=== PATIENT | female | born 1945 | race Caucasian/White ===

== ENCOUNTER 2017-02-12 05:32 | Emergency (ER) | payer MEDICARE, OTHER ==
[2017-02-12] MEDS: ALBUTEROL 0.083% (NEB) 2.5 MG/3 ML AMP NEB ×2 (08:44→09:51)
[2017-02-12] MEDS: IPRATROPIUM (NEB) 0.5 MG/2.5 ML AMP NEB ×2 (08:44→09:51)
== END 2017-02-12 10:52 | disposition home or self-care (01) ==
LOC: FTE 05:32
DX: J06.9 Acute upper respiratory infection, unspecified (principal); I10 Essential (primary) hypertension; E11.9 Type 2 diabetes mellitus without complications; Z79.4 Long term (current) use of insulin; Z79.82 Long term (current) use of aspirin
CPT/HCPCS: 71010; 87400; 94640; 94664; 99284-25

== ENCOUNTER 2017-03-25 20:11 | Emergency (ER) | payer MEDICARE, OTHER ==
[2017-03-25] MEDS: SOD CHLORIDE 0.9% 1,000 ML IV (23:47)
[2017-03-25] MEDS: ONDANSETRON 4 MG INJ IV (23:47)
[2017-03-25] MEDS: MECLIZINE 12.5 MG TAB PO (23:47)
[2017-03-26 00:02] LABS: ADD MAN DIFF? NO
[2017-03-26 00:06] LABS: BASOPHILS % 0.4 % (0.0-2.0); EOSINOPHILS # 0.2 10^3/ul (0.0-0.5); EOSINOPHILS % 1.5 % (0.0-7.0); HEMATOCRIT 39.3 % (37.0-47.0); HEMOGLOBIN 13.6 g/dl (12.0-16.0); LYMPHOCYTES # 1.7 10^3/ul (0.8-2.9); LYMPHOCYTES % 15.3 % (15.0-51.0); MEAN CORPUSCULAR HEMOGLOBIN 29.8 pg (29.0-33.0); MEAN CORPUSCULAR HGB CONC 34.6 g/dl (32.0-37.0); MONOCYTE # 0.6 10^3/ul (0.3-0.9); MONOCYTES % 5.1 % (0.0-11.0); NEUTROPHIL # 8.7 10^3/ul (1.6-7.5); NEUTROPHILS % 77.3 % (39.0-77.0); PLATELET COUNT 297 10^3/UL (140-415); RED BLOOD COUNT 4.57 10^6/ul (4.20-5.40); RED CELL DISTRIBUTION WIDTH 12.5 % (11.5-14.5)
[2017-03-26 00:06] LABS: WHITE BLOOD COUNT 11.3 10^3/ul (4.8-10.8)
[2017-03-26 00:18] LABS: ADD UMIC YES; UR ASCORBIC ACID NEGATIVE (NEGATIVE); UR BILIRUBIN (Dip) NEGATIVE (NEGATIVE); UR BLOOD (Dip) NEGATIVE (NEGATIVE); UR CLARITY CLEAR (CLEAR); UR COLOR YELLOW (YELLOW); UR GLUCOSE (Dip) 1+ mg/dL (NEGATIVE); UR KETONES (Dip) NEGATIVE (NEGATIVE); UR LEUKOCYTE ESTERASE (Dip) NEGATIVE Leu/ul (NEGATIVE); UR NITRITE (Dip) NEGATIVE (NEGATIVE); UR RBC 0 /HPF (0-5); UR SPECIFIC GRAVITY (Dip) 1.023 (1.003-1.030); UR TOTAL PROTEIN (Dip) 2+ mg/dl (NEGATIVE); UR UROBILINOGEN (Dip) 2+ mg/dL (NEGATIVE); UR WBC 2 /HPF (0-5)
[2017-03-26 00:27] LABS: ANION GAP 15 (8-16); BLOOD UREA NITROGEN 28 mg/dl (7-20); CARBON DIOXIDE 21 mmol/L (21-31); CHLORIDE 99 mmol/L (97-110); CREATININE 0.85 mg/dl (0.44-1.00); GLUCOSE 249 mg/dl (70-220); POTASSIUM 5.3 mmol/L (3.5-5.1); SODIUM 130 mmol/L (135-144)
[2017-03-26 00:44] LABS: TROPONIN-I < 0.012 ng/ml (0.00-0.12)
[2017-03-26] MEDS: NA POLYST SULFON 15 GM/60 ML BTL PO (03:58)
== END 2017-03-26 04:19 | disposition home or self-care (01) ==
LOC: E/R 03-26 04:19
DX: E11.65 Type 2 diabetes mellitus with hyperglycemia (principal); E87.1 Hypo-osmolality and hyponatremia; I10 Essential (primary) hypertension; E11.9 Type 2 diabetes mellitus without complications; Z79.4 Long term (current) use of insulin; Z79.82 Long term (current) use of aspirin
CPT/HCPCS: 36415; 80048; 81001; 84484; 85025; 93005; 96374; 99284-25

== ENCOUNTER 2017-05-30 19:45 | Emergency (ER) | payer MEDICARE, OTHER | END 2017-05-30 21:27 | disposition home or self-care (01) | LOC: FTE 19:45 → E/R 21:27 | DX: M25.562 Pain in left knee (principal); I10 Essential (primary) hypertension; E11.9 Type 2 diabetes mellitus without complications; E03.9 Hypothyroidism, unspecified; Z79.4 Long term (current) use of insulin; Z79.82 Long term (current) use of aspirin | CPT/HCPCS: 73562; 99283-25 ==

== ENCOUNTER 2018-04-25 18:56 | Emergency (ER) | payer MEDICARE, OTHER ==
[2018-04-25 21:02] LABS: ADD MAN DIFF? NO; BASOPHILS % 0.4 % (0.0-2.0); EOSINOPHILS # 0.2 10^3/ul (0.0-0.5); EOSINOPHILS % 2.2 % (0.0-7.0); HEMATOCRIT 33.2 % (37.0-47.0); HEMOGLOBIN 10.9 g/dl (12.0-16.0); LYMPHOCYTES # 1.6 10^3/ul (0.8-2.9); LYMPHOCYTES % 20.7 % (15.0-51.0); MEAN CORPUSCULAR HEMOGLOBIN 28.9 pg (29.0-33.0); MEAN CORPUSCULAR HGB CONC 32.8 g/dl (32.0-37.0); MEAN CORPUSCULAR VOLUME 88.1 fl (82.0-101.0); MEAN PLATELET VOLUME 10.4 fl (7.4-10.4); MONOCYTE # 0.5 10^3/ul (0.3-0.9); MONOCYTES % 6.9 % (0.0-11.0); NEUTROPHIL # 5.3 10^3/ul (1.6-7.5); NEUTROPHILS % 69.3 % (39.0-77.0); PLATELET COUNT 259 10^3/UL (140-415); RED BLOOD COUNT 3.77 10^6/ul (4.20-5.40); RED CELL DISTRIBUTION WIDTH 12.4 % (11.5-14.5)
[2018-04-25 21:02] LABS: WHITE BLOOD COUNT 7.7 10^3/ul (4.8-10.8)
[2018-04-25] MEDS: ONDANSETRON (ODT) 4 MG TAB ODT (21:05)
[2018-04-25 21:13] LABS: ALANINE AMINOTRANSFERASE 27 IU/L (13-69); ALBUMIN 3.8 g/dl (3.3-4.9); ALBUMIN/GLOBULIN RATIO 1.26; ALKALINE PHOSPHATASE 134 IU/L (42-121); ANION GAP 10 (5-13); ASPARTATE AMINO TRANSFERASE 24 IU/L (15-46); BILIRUBIN,INDIRECT 0.2 mg/dl (0-1.1); BILIRUBIN,TOTAL 0.2 mg/dl (0.2-1.3); BLOOD UREA NITROGEN 28 mg/dl (7-20); CALCIUM 9.7 mg/dl (8.4-10.2); CARBON DIOXIDE 24 mmol/L (21-31); CHLORIDE 101 mmol/L (97-110); CREATININE 0.92 mg/dl (0.44-1.00); GLUCOSE 256 mg/dl (70-220); LIPASE 67 U/L (23-300); POTASSIUM 5.1 mmol/L (3.5-5.1); SODIUM 135 mmol/L (135-144); TOTAL PROTEIN 6.8 g/dl (6.1-8.1)
[2018-04-25] MEDS: ONDANSETRON 4 MG INJ IV (21:33)
[2018-04-25] MEDS: morphine 4 MG/ML VIAL IV (21:33)
== END 2018-04-26 00:10 | disposition home or self-care (01) ==
LOC: E/R 04-26 00:10
DX: K59.00 Constipation, unspecified (principal); E11.65 Type 2 diabetes mellitus with hyperglycemia; I10 Essential (primary) hypertension; Z79.4 Long term (current) use of insulin; Z79.82 Long term (current) use of aspirin
CPT/HCPCS: 36415; 71045; 74176; 80053; 83690; 85025; 96374; 99285-25

== ENCOUNTER 2018-06-13 20:08 | Inpatient (IN) | payer MEDICARE, OTHER ==
[2018-06-13 22:31] LABS: ADD MAN DIFF? NO
[2018-06-13 22:34] LABS: BASOPHILS % 0.3 % (0.0-2.0); EOSINOPHILS # 0.2 10^3/ul (0.0-0.5); EOSINOPHILS % 2.3 % (0.0-7.0); HEMOGLOBIN 11.5 g/dl (12.0-16.0); LYMPHOCYTES # 1.4 10^3/ul (0.8-2.9); LYMPHOCYTES % 13.9 % (15.0-51.0); MEAN CORPUSCULAR HGB CONC 33.8 g/dl (32.0-37.0); MEAN CORPUSCULAR VOLUME 85.9 fl (82.0-101.0); MEAN PLATELET VOLUME 9.8 fl (7.4-10.4); MONOCYTE # 0.6 10^3/ul (0.3-0.9); PLATELET COUNT 254 10^3/UL (140-415); RED BLOOD COUNT 3.96 10^6/ul (4.20-5.40); RED CELL DISTRIBUTION WIDTH 12.5 % (11.5-14.5)
[2018-06-13 22:34] LABS: WHITE BLOOD COUNT 10.4 10^3/ul (4.8-10.8)
[2018-06-13 22:53] LABS: ANION GAP 9 (5-13); BLOOD UREA NITROGEN 25 mg/dl (7-20); CALCIUM 9.6 mg/dl (8.4-10.2); CARBON DIOXIDE 23 mmol/L (21-31); CHLORIDE 96 mmol/L (97-110); GLUCOSE 279 mg/dl (70-220); POTASSIUM 4.9 mmol/L (3.5-5.1); SODIUM 128 mmol/L (135-144)
[2018-06-13 23:04] LABS: B-TYPE NATRIURETIC PEPTIDE 497 PG/ML (0-450); TROPONIN-I < 0.012 ng/ml (0.000-0.120)
[2018-06-13] MEDS: ACETAMINOPHEN 325 MG TAB PO (23:54)
[2018-06-13] MEDS: NITROGLYCERIN (SL) 0.4 MG TAB SL (23:54)
[2018-06-13] MEDS: FUROSEMIDE 20 MG INJ IV (23:54)
[2018-06-14] MEDS: SOD CHLORIDE 0.9% 500 ML IV (00:20)
[2018-06-14] MEDS ORDERED: BISACODYL (EC) 5 MG TAB PO (01:00)
[2018-06-14] MEDS ORDERED: ONDANSETRON 4 MG TAB PO (01:00)
[2018-06-14] MEDS ORDERED: NACL 0.9% 3 ML SYG IV (01:00)
[2018-06-14] MEDS ORDERED: NITROGLYCERIN (SL) 0.4 MG TAB SL (01:00)
[2018-06-14] MEDS ORDERED: DOCUSATE SODIUM 100 MG CAP PO (01:00)
[2018-06-14] MEDS: HEPARIN 5,000 UNIT/1 ML VIAL SC ×4 (01:31→21:48)
[2018-06-14] MEDS: ASPIRIN 81 MG TAB PO (01:32)
[2018-06-14] MEDS: LISINOPRIL 20 MG TAB PO (04:12)
[2018-06-14] MEDS: AMLODIPINE 5 MG TAB PO (04:12)
[2018-06-14 05:53] LABS: ADD MAN DIFF? NO
[2018-06-14 05:58] LABS: BASOPHILS % 0.4 % (0.0-2.0); EOSINOPHILS # 0.2 10^3/ul (0.0-0.5); EOSINOPHILS % 2.5 % (0.0-7.0); HEMATOCRIT 35.8 % (37.0-47.0); HEMOGLOBIN 12.1 g/dl (12.0-16.0); LYMPHOCYTES # 1.4 10^3/ul (0.8-2.9); LYMPHOCYTES % 15.5 % (15.0-51.0); MEAN CORPUSCULAR HEMOGLOBIN 28.9 pg (29.0-33.0); MEAN CORPUSCULAR HGB CONC 33.8 g/dl (32.0-37.0); MEAN CORPUSCULAR VOLUME 85.4 fl (82.0-101.0); MEAN PLATELET VOLUME 9.8 fl (7.4-10.4); MONOCYTE # 0.7 10^3/ul (0.3-0.9); MONOCYTES % 7.3 % (0.0-11.0); NEUTROPHIL # 6.7 10^3/ul (1.6-7.5); NEUTROPHILS % 73.5 % (39.0-77.0); PLATELET COUNT 276 10^3/UL (140-415); RED BLOOD COUNT 4.19 10^6/ul (4.20-5.40); RED CELL DISTRIBUTION WIDTH 12.4 % (11.5-14.5)
[2018-06-14 05:58] LABS: WHITE BLOOD COUNT 9.2 10^3/ul (4.8-10.8)
[2018-06-14 06:35] LABS: ALANINE AMINOTRANSFERASE 21 IU/L (13-69); ALBUMIN 3.8 g/dl (3.3-4.9); ALBUMIN/GLOBULIN RATIO 1.35; ALKALINE PHOSPHATASE 123 IU/L (42-121); ANION GAP 9 (5-13); ASPARTATE AMINO TRANSFERASE 24 IU/L (15-46); BILIRUBIN,INDIRECT 0.5 mg/dl (0-1.1); BILIRUBIN,TOTAL 0.5 mg/dl (0.2-1.3); BLOOD UREA NITROGEN 24 mg/dl (7-20); CALCIUM 9.4 mg/dl (8.4-10.2); CARBON DIOXIDE 25 mmol/L (21-31); CHLORIDE 99 mmol/L (97-110); CHOL/HDL RATIO 2.2 RATIO; CHOLESTEROL 194 mg/dl (100-200); CREATININE 0.65 mg/dl (0.44-1.00); GLUCOSE 163 mg/dl (70-220); HDL CHOLESTEROL 85 mg/dl (33-92); LDL CHOLESTEROL,CALCULATED 77 mg/dl; MAGNESIUM 1.7 mg/dl (1.7-2.5); POTASSIUM 4.5 mmol/L (3.5-5.1); SODIUM 133 mmol/L (135-144); TOTAL PROTEIN 6.6 g/dl (6.1-8.1); TRIGLYCERIDES 158 mg/dl (0-149)
[2018-06-14 07:42] LABS: HEMOGLOBIN A1C 8.8 % (0-5.9)
[2018-06-14] MEDS: hydrALAzine 20 MG INJ IV (08:32)
[2018-06-14] MEDS: FERROUS SULFATE (EC) 325 MG TAB PO (08:39)
[2018-06-14] MEDS: ISOSORBIDE MONONITRATE(SR)60 MG TAB PO (08:40)
[2018-06-14] MEDS: LEVOTHYROXINE 88 MCG TAB PO (08:40)
[2018-06-14] MEDS: predniSONE 1 MG TAB PO (08:41)
[2018-06-14] MEDS: TACROLIMUS 1 MG CAP PO (08:42)
[2018-06-14] MEDS: PANTOPRAZOLE (EC) 40 MG TAB PO (08:43)
[2018-06-14] MEDS: ASPIRIN (EC) 81 MG TAB PO (08:43)
[2018-06-14] MEDS: MYCOPHENOLATE 250 MG CAP PO ×2 (08:44→21:39)
[2018-06-14] MEDS: METOPROLOL (XL) 25 MG TAB PO (09:38)
[2018-06-14] MEDS: FUROSEMIDE 20 MG TAB PO (09:39)
[2018-06-14 10:56] LABS: ADD UMIC YES; UR ASCORBIC ACID NEGATIVE (NEGATIVE); UR BILIRUBIN (Dip) NEGATIVE (NEGATIVE); UR BLOOD (Dip) NEGATIVE (NEGATIVE); UR CLARITY CLEAR (CLEAR); UR COLOR YELLOW (YELLOW); UR GLUCOSE (Dip) 2+ mg/dL (NEGATIVE); UR KETONES (Dip) NEGATIVE (NEGATIVE); UR LEUKOCYTE ESTERASE (Dip) NEGATIVE Leu/ul (NEGATIVE); UR NITRITE (Dip) NEGATIVE (NEGATIVE); UR RBC 0 /HPF (0-5); UR SPECIFIC GRAVITY (Dip) 1.014 (1.003-1.030); UR TOTAL PROTEIN (Dip) 2+ mg/dl (NEGATIVE); UR UROBILINOGEN (Dip) NEGATIVE (NEGATIVE); UR WBC 1 /HPF (0-5)
[2018-06-14 11:05] LABS: SODIUM,URINE RANDOM 23 mmol/L (30-90)
[2018-06-14 11:05] LABS: CREATININE,URINE RANDOM 66.74 mg/dl (20-320)
[2018-06-14] MEDS ORDERED: GLUCOSE GEL 15 GRAM TUBE BUCCAL (12:00)
[2018-06-14] MEDS ORDERED: GLUCAGON 1 MG INJ IM (12:00)
[2018-06-14] MEDS ORDERED: GLUCOSE GEL 15 GRAM TUBE PO ×2 (12:00)
[2018-06-14] MEDS ORDERED: DEXTROSE 50% 50 ML SYRINGE IV ×2 (12:00)
[2018-06-14] MEDS: INSULIN REGULAR, HUMAN 100 UNIT/1 ML 3ML VIAL SC (14:14)
[2018-06-14] MEDS: AMLODIPINE 10 MG TAB PO (14:38)
[2018-06-14] MEDS: ACETAMINOPHEN 325 MG TAB PO (16:59)
[2018-06-14] MEDS ORDERED: ALBUTEROL 0.083% (NEB) 2.5 MG/3 ML AMP HHN (17:00)
[2018-06-14] MEDS: INSULIN ASPART [NOVOLOG] 3 ML PEN SC ×2 (18:04→21:00)
[2018-06-14] MEDS: AZITHROMYCIN 500MG/NS (PMX) 250 ML IVPB (18:27)
[2018-06-14] MEDS ORDERED: INSULIN GLARGINE [LANtus] 3 ML PEN SC (21:00)
[2018-06-14] MEDS: ATORVASTATIN 10 MG TAB PO (21:39)
[2018-06-14] MEDS: INSULIN GLARGINE [LANTus] (100 UNITS/ML) SYG SC (21:47)
[2018-06-15] MEDS: LEVOTHYROXINE 88 MCG TAB PO (06:07)
[2018-06-15] MEDS: PANTOPRAZOLE (EC) 40 MG TAB PO (06:07)
[2018-06-15] MEDS: HEPARIN 5,000 UNIT/1 ML VIAL SC (06:20)
[2018-06-15 07:07] LABS: ADD MAN DIFF? NO
[2018-06-15 07:22] LABS: WHITE BLOOD COUNT 8.3 10^3/ul (4.8-10.8)
[2018-06-15 07:22] LABS: BASOPHILS % 0.5 % (0.0-2.0); EOSINOPHILS # 0.2 10^3/ul (0.0-0.5); EOSINOPHILS % 2.7 % (0.0-7.0); HEMATOCRIT 35.4 % (37.0-47.0); LYMPHOCYTES # 1.6 10^3/ul (0.8-2.9); LYMPHOCYTES % 18.8 % (15.0-51.0); MEAN CORPUSCULAR HEMOGLOBIN 28.8 pg (29.0-33.0); MEAN CORPUSCULAR HGB CONC 33.9 g/dl (32.0-37.0); MEAN CORPUSCULAR VOLUME 84.9 fl (82.0-101.0); MEAN PLATELET VOLUME 10.2 fl (7.4-10.4); MONOCYTE # 0.6 10^3/ul (0.3-0.9); MONOCYTES % 7.3 % (0.0-11.0); NEUTROPHIL # 5.8 10^3/ul (1.6-7.5); NEUTROPHILS % 70.1 % (39.0-77.0); PLATELET COUNT 279 10^3/UL (140-415); RED BLOOD COUNT 4.17 10^6/ul (4.20-5.40); RED CELL DISTRIBUTION WIDTH 12.7 % (11.5-14.5)
[2018-06-15 07:35] LABS: ALBUMIN 3.8 g/dl (3.3-4.9); ANION GAP 9 (5-13); BLOOD UREA NITROGEN 26 mg/dl (7-20); CALCIUM 9.4 mg/dl (8.4-10.2); CARBON DIOXIDE 24 mmol/L (21-31); CHLORIDE 100 mmol/L (97-110); CREATININE 0.67 mg/dl (0.44-1.00); GLUCOSE 166 mg/dl (70-220); MAGNESIUM 1.8 mg/dl (1.7-2.5); PHOSPHORUS 3.2 mg/dl (2.5-4.9); POTASSIUM 4.5 mmol/L (3.5-5.1); SODIUM 133 mmol/L (135-144)
[2018-06-15] MEDS: MYCOPHENOLATE 250 MG CAP PO (08:13)
[2018-06-15] MEDS: FERROUS SULFATE (EC) 325 MG TAB PO (08:14)
[2018-06-15] MEDS: TACROLIMUS 1 MG CAP PO (08:14)
[2018-06-15] MEDS: predniSONE 1 MG TAB PO (08:14)
[2018-06-15] MEDS: ASPIRIN (EC) 81 MG TAB PO (08:15)
[2018-06-15] MEDS: AMLODIPINE 10 MG TAB PO (08:15)
[2018-06-15] MEDS: LISINOPRIL 20 MG TAB PO (08:15)
[2018-06-15] MEDS: FUROSEMIDE 20 MG TAB PO (08:15)
[2018-06-15] MEDS: ISOSORBIDE MONONITRATE(SR)60 MG TAB PO (08:16)
[2018-06-15] MEDS: METOPROLOL (XL) 25 MG TAB PO (08:17)
[2018-06-15] MEDS: INSULIN ASPART [NOVOLOG] 3 ML PEN SC ×2 (08:27→12:22)
[2018-06-15] MEDS ORDERED: AMLODIPINE 5 MG TAB PO (09:00)
[2018-06-15 16:12] LABS: CREATININE, RANDOM URINE 63 mg/dL (20-275); MICROALBUMIN 60.8 mg/dL; MICROALBUMIN/CREATININE RATIO 965 (<30)
== END 2018-06-15 14:05 | disposition home or self-care (01) | DRG 304 ==
LOC: TEL 06-14 15:57 → E/R 20:08 → TEL 06-14 00:54
DX: I16.0 Hypertensive urgency (principal); N18.6 End stage renal disease; E87.1 Hypo-osmolality and hyponatremia; Z94.0 Kidney transplant status; E87.0 Hyperosmolality and hypernatremia; I13.2 Hypertensive heart and chronic kidney disease with heart failure and with stage 5 chronic kidney disease, or end stage renal disease; E11.22 Type 2 diabetes mellitus with diabetic chronic kidney disease; I50.9 Heart failure, unspecified; J20.9 Acute bronchitis, unspecified; E78.5 Hyperlipidemia, unspecified; E03.9 Hypothyroidism, unspecified; D64.9 Anemia, unspecified; E66.9 Obesity, unspecified; Z68.36 Body mass index [BMI] 36.0-36.9, adult; Z71.3 Dietary counseling and surveillance; Z79.4 Long term (current) use of insulin
CPT/HCPCS: 36415; 71045; 71250; 80048; 80053; 80061; 80069; 81001; 81003; 82043; 82962; 83036; 83735; 83880; 84155; 84300; 84443; 84484; 85025; 93005; 93306; 96374; 99285-25

== ENCOUNTER 2018-07-31 08:45 | Emergency (ER) | payer MEDICARE, OTHER ==
[2018-07-31 10:24] LABS: ADD MAN DIFF? NO
[2018-07-31] MEDS: AZITHROMYCIN 500MG/NS (PMX) 250 ML IV (10:25)
[2018-07-31] MEDS: SOD CHLORIDE 0.9% 500 ML IV (10:26)
[2018-07-31 10:40] LABS: BASOPHIL # 0.1 10^3/ul (0.0-0.1); BASOPHILS % 0.8 % (0.0-2.0); EOSINOPHILS # 0.3 10^3/ul (0.0-0.5); EOSINOPHILS % 2.9 % (0.0-7.0); HEMATOCRIT 33.7 % (37.0-47.0); LYMPHOCYTES # 1.4 10^3/ul (0.8-2.9); LYMPHOCYTES % 16.2 % (15.0-51.0); MEAN CORPUSCULAR HEMOGLOBIN 29.1 pg (29.0-33.0); MEAN CORPUSCULAR HGB CONC 32.6 g/dl (32.0-37.0); MEAN CORPUSCULAR VOLUME 89.2 fl (82.0-101.0); MEAN PLATELET VOLUME 10.1 fl (7.4-10.4); MONOCYTE # 0.8 10^3/ul (0.3-0.9); MONOCYTES % 9.1 % (0.0-11.0); NEUTROPHIL # 6.1 10^3/ul (1.6-7.5); NEUTROPHILS % 70.3 % (39.0-77.0); PLATELET COUNT 241 10^3/UL (140-415); RED BLOOD COUNT 3.78 10^6/ul (4.20-5.40); RED CELL DISTRIBUTION WIDTH 13.2 % (11.5-14.5)
[2018-07-31 10:40] LABS: WHITE BLOOD COUNT 8.6 10^3/ul (4.8-10.8)
[2018-07-31 10:47] LABS: ALANINE AMINOTRANSFERASE 16 IU/L (13-69); ALBUMIN 3.6 g/dl (3.3-4.9); ALBUMIN/GLOBULIN RATIO 1.33; ALKALINE PHOSPHATASE 80 IU/L (42-121); ANION GAP 8 (5-13); ASPARTATE AMINO TRANSFERASE 27 IU/L (15-46); BILIRUBIN,INDIRECT 0.4 mg/dl (0-1.1); BILIRUBIN,TOTAL 0.4 mg/dl (0.2-1.3); BLOOD UREA NITROGEN 23 mg/dl (7-20); CALCIUM 8.9 mg/dl (8.4-10.2); CARBON DIOXIDE 21 mmol/L (21-31); CHLORIDE 100 mmol/L (97-110); CREATINE KINASE 48 IU/L (23-200); GLUCOSE 244 mg/dl (70-220); POTASSIUM 4.4 mmol/L (3.5-5.1); SODIUM 129 mmol/L (135-144); TOTAL PROTEIN 6.3 g/dl (6.1-8.1)
[2018-07-31] MEDS: ALBUTEROL 0.5% (NEB) 2.5 MG/0.5 ML AMP INH (10:52)
[2018-07-31] MEDS: IPRATROPIUM (NEB) 0.5 MG/2.5 ML AMP INH (10:52)
[2018-07-31 10:54] LABS: INR 0.85; PARTIAL THROMBOPLASTIN TIME 27.1 Sec (23.0-35.0); PROTIME 11.7 Sec (11.9-14.9); PT RATIO 0.9
[2018-07-31 10:59] LABS: B-TYPE NATRIURETIC PEPTIDE 635 PG/ML (0-450); CK INDEX 1.9; CK-MB 0.89 ng/ml (0.0-2.4); TROPONIN-I < 0.012 ng/ml (0.000-0.120)
[2018-07-31] MEDS: ALBUTEROL 0.5% (NEB) 2.5 MG/0.5 ML AMP NEB (12:15)
[2018-07-31] MEDS: IPRATROPIUM (NEB) 0.5 MG/2.5 ML AMP NEB (12:17)
== END 2018-07-31 13:55 | disposition home or self-care (01) ==
LOC: E/R 13:55
DX: J40 Bronchitis, not specified as acute or chronic (principal); E87.1 Hypo-osmolality and hyponatremia; I10 Essential (primary) hypertension; E11.65 Type 2 diabetes mellitus with hyperglycemia; Z79.4 Long term (current) use of insulin; Z79.82 Long term (current) use of aspirin
CPT/HCPCS: 71045; 80053; 82550; 82553; 83880; 84484; 85025; 85610; 85730; 87040-91; 93005; 94644; 94645; 96374; 99285-25

== ENCOUNTER 2018-08-21 17:20 | Emergency (ER) | payer MEDICARE, OTHER ==
[2018-08-21] MEDS: HYDROCODONE/APAP (5/325) TAB PO (18:03)
== END 2018-08-21 19:38 | disposition home or self-care (01) ==
LOC: FTE 17:20
DX: S80.12XA Contusion of left lower leg, initial encounter (principal); E11.9 Type 2 diabetes mellitus without complications; I10 Essential (primary) hypertension; W01.0XXA Fall on same level from slipping, tripping and stumbling without subsequent striking against object, initial encounter; Y92.002 Bathroom of unspecified non-institutional (private) residence as the place of occurrence of the external cause; Z79.4 Long term (current) use of insulin; Z79.82 Long term (current) use of aspirin
CPT/HCPCS: 73590; 99283-25

== ENCOUNTER 2018-09-16 15:37 | Inpatient (IN) | payer MEDICARE, OTHER ==
[2018-09-16 16:24] LABS: ADD MAN DIFF? NO
[2018-09-16] MEDS: SOD CHLORIDE 0.9% 1,000 ML IV (16:25)
[2018-09-16 16:26] LABS: WHITE BLOOD COUNT 7.8 10^3/ul (4.8-10.8)
[2018-09-16 16:26] LABS: BASOPHILS % 0.4 % (0.0-2.0); EOSINOPHILS # 0.1 10^3/ul (0.0-0.5); EOSINOPHILS % 1.4 % (0.0-7.0); HEMATOCRIT 30.7 % (37.0-47.0); HEMOGLOBIN 10.7 g/dl (12.0-16.0); LYMPHOCYTES # 0.9 10^3/ul (0.8-2.9); LYMPHOCYTES % 11.4 % (15.0-51.0); MEAN CORPUSCULAR HEMOGLOBIN 29.5 pg (29.0-33.0); MEAN CORPUSCULAR HGB CONC 34.9 g/dl (32.0-37.0); MEAN CORPUSCULAR VOLUME 84.6 fl (82.0-101.0); MEAN PLATELET VOLUME 10.3 fl (7.4-10.4); MONOCYTE # 0.6 10^3/ul (0.3-0.9); MONOCYTES % 7.9 % (0.0-11.0); NEUTROPHIL # 6.1 10^3/ul (1.6-7.5); NEUTROPHILS % 78.5 % (39.0-77.0); PLATELET COUNT 206 10^3/UL (140-415); RED BLOOD COUNT 3.63 10^6/ul (4.20-5.40); RED CELL DISTRIBUTION WIDTH 12.5 % (11.5-14.5)
[2018-09-16 16:44] LABS: ALANINE AMINOTRANSFERASE 27 IU/L (13-69); ALBUMIN 3.5 g/dl (3.3-4.9); ALKALINE PHOSPHATASE 107 IU/L (42-121); ANION GAP 9 (5-13); ASPARTATE AMINO TRANSFERASE 21 IU/L (15-46); BILIRUBIN,INDIRECT 0.7 mg/dl (0-1.1); BILIRUBIN,TOTAL 0.7 mg/dl (0.2-1.3); BLOOD UREA NITROGEN 17 mg/dl (7-20); CALCIUM 8.7 mg/dl (8.4-10.2); CARBON DIOXIDE 22 mmol/L (21-31); CHLORIDE 89 mmol/L (97-110); CREATININE 0.79 mg/dl (0.44-1.00); GLUCOSE 342 mg/dl (70-220); POTASSIUM 4.7 mmol/L (3.5-5.1); SODIUM 120 mmol/L (135-144)
[2018-09-16 16:55] LABS: TROPONIN-I < 0.012 ng/ml (0.000-0.120)
[2018-09-16 17:03] LABS: ADD UMIC YES; UR ASCORBIC ACID NEGATIVE (NEGATIVE); UR BILIRUBIN (Dip) NEGATIVE (NEGATIVE); UR BLOOD (Dip) NEGATIVE (NEGATIVE); UR CLARITY CLEAR (CLEAR); UR COLOR YELLOW (YELLOW); UR GLUCOSE (Dip) 3+ mg/dL (NEGATIVE); UR KETONES (Dip) NEGATIVE (NEGATIVE); UR LEUKOCYTE ESTERASE (Dip) NEGATIVE Leu/ul (NEGATIVE); UR NITRITE (Dip) NEGATIVE (NEGATIVE); UR RBC 0 /HPF (0-5); UR SPECIFIC GRAVITY (Dip) 1.007 (1.003-1.030); UR TOTAL PROTEIN (Dip) 2+ mg/dl (NEGATIVE); UR UROBILINOGEN (Dip) NEGATIVE (NEGATIVE); UR WBC 1 /HPF (0-5)
[2018-09-16] MEDS: hydrALAzine 20 MG INJ IV (17:50)
[2018-09-16] MEDS ORDERED: ACETAMINOPHEN 325 MG TAB PO (18:30)
[2018-09-16] MEDS ORDERED: ONDANSETRON 4 MG INJ IV (18:30)
[2018-09-16] MEDS: ONDANSETRON 4 MG INJ IV (18:46)
[2018-09-16] MEDS ORDERED: NITROGLYCERIN (SL) 0.4 MG TAB SL (19:00)
[2018-09-16] MEDS ORDERED: NACL 0.9% 3 ML SYG IV (19:00)
[2018-09-16] MEDS ORDERED: morphine 2 MG INJ IV (19:00)
[2018-09-16] MEDS ORDERED: hydrALAzine 20 MG INJ IV (19:00)
[2018-09-16] MEDS ORDERED: ALBUTEROL HFA 8 GM INHALER INH (19:00)
[2018-09-16] MEDS ORDERED: ALBUTEROL/IPRATROPIUM (NEB) 3 ML AMP HHN (19:00)
[2018-09-16 19:15] LABS: FREE T4 (FREE THYROXINE) 0.77 ng/dl (0.78-2.44)
[2018-09-16] MEDS ORDERED: MYCOPHENOLATE 250 MG CAP PO (21:00)
[2018-09-16] MEDS ORDERED: NON-FORMULARY/PATIENT OWN MED (Pravastatin Sodium* 40 MG) PO (21:00)
[2018-09-16] MEDS: INSULIN ASPART [NOVOLOG] 3 ML PEN SC (21:00)
[2018-09-16] MEDS ORDERED: INSULIN GLARGINE [LANtus] 3 ML PEN SC (21:00)
[2018-09-17] MEDS: ATORVASTATIN 10 MG TAB PO ×2 (00:37→20:52)
[2018-09-17] MEDS: MYCOPHENOLATE MOFETIL 500 MG TABLET PO ×3 (00:37→20:52)
[2018-09-17] MEDS: SOD CHLORIDE 0.9% 1,000 ML IV (00:39)
[2018-09-17] MEDS: HEPARIN 5,000 UNIT/1 ML VIAL SC ×3 (01:09→20:58)
[2018-09-17] MEDS: ACCU-CHEK XX (02:00)
[2018-09-17] MEDS: INSULIN GLARGINE [LANTus] (100 UNITS/ML) SYG SC ×2 (03:12→20:58)
[2018-09-17] MEDS: INSULIN ASPART [NOVOLOG] 3 ML PEN SC ×6 (03:13→20:57)
[2018-09-17] MEDS: ACETAMINOPHEN 325 MG TAB PO ×2 (03:37→21:19)
[2018-09-17] MEDS: LORAZEPAM 2 MG INJ IV ×2 (04:22→22:28)
[2018-09-17] MEDS: PANTOPRAZOLE (EC) 40 MG TAB PO (06:29)
[2018-09-17] MEDS: LEVOTHYROXINE 88 MCG TAB PO (06:29)
[2018-09-17 06:43] LABS: ADD MAN DIFF? NO
[2018-09-17 06:57] LABS: WHITE BLOOD COUNT 6.8 10^3/ul (4.8-10.8)
[2018-09-17 06:57] LABS: BASOPHILS % 0.4 % (0.0-2.0); EOSINOPHILS # 0.1 10^3/ul (0.0-0.5); EOSINOPHILS % 1.3 % (0.0-7.0); HEMATOCRIT 31.5 % (37.0-47.0); HEMOGLOBIN 10.7 g/dl (12.0-16.0); LYMPHOCYTES % 15.3 % (15.0-51.0); MEAN CORPUSCULAR HEMOGLOBIN 29.2 pg (29.0-33.0); MEAN CORPUSCULAR VOLUME 86.1 fl (82.0-101.0); MEAN PLATELET VOLUME 10.5 fl (7.4-10.4); MONOCYTE # 0.7 10^3/ul (0.3-0.9); MONOCYTES % 9.6 % (0.0-11.0); NEUTROPHILS % 72.8 % (39.0-77.0); PLATELET COUNT 233 10^3/UL (140-415); RED BLOOD COUNT 3.66 10^6/ul (4.20-5.40); RED CELL DISTRIBUTION WIDTH 12.6 % (11.5-14.5)
[2018-09-17 07:11] LABS: CHOLESTEROL 145 mg/dl (100-200)
[2018-09-17 07:11] LABS: CHOL/HDL RATIO 2.8 RATIO; HDL CHOLESTEROL 51 mg/dl (33-92); LDL CHOLESTEROL,CALCULATED 42 mg/dl; TRIGLYCERIDES 259 mg/dl (0-149)
[2018-09-17 07:13] LABS: ANION GAP 7 (5-13); BLOOD UREA NITROGEN 12 mg/dl (7-20); CALCIUM 8.6 mg/dl (8.4-10.2); CARBON DIOXIDE 23 mmol/L (21-31); CHLORIDE 99 mmol/L (97-110); CREATININE 0.69 mg/dl (0.44-1.00); GLUCOSE 192 mg/dl (70-220); MAGNESIUM 1.9 mg/dl (1.7-2.5); PHOSPHORUS 2.2 mg/dl (2.5-4.9); POTASSIUM 4.4 mmol/L (3.5-5.1); SODIUM 129 mmol/L (135-144)
[2018-09-17 07:28] LABS: HEMOGLOBIN A1C 8.5 % (0-5.9)
[2018-09-17] MEDS: FERROUS SULFATE (EC) 325 MG TAB PO (08:09)
[2018-09-17] MEDS: INSULIN REGULAR, HUMAN 100 UNIT/1 ML 3ML VIAL SC ×3 (08:10→17:00)
[2018-09-17] MEDS: ISOSORBIDE MONONITRATE(SR)60 MG TAB PO (08:12)
[2018-09-17] MEDS: LISINOPRIL 20 MG TAB PO (08:12)
[2018-09-17] MEDS: ASPIRIN (EC) 81 MG TAB PO (08:13)
[2018-09-17] MEDS: predniSONE 1 MG TAB PO (08:13)
[2018-09-17] MEDS: METOPROLOL (XL) 25 MG TAB PO (08:14)
[2018-09-17] MEDS: FUROSEMIDE 20 MG TAB PO (08:14)
[2018-09-17] MEDS: AMLODIPINE 10 MG TAB PO (08:15)
[2018-09-17] MEDS ORDERED: NON-FORMULARY/PATIENT OWN MED (Esomeprazole Mag Trihydrate (Nexium) 40 MG) PO (09:00)
[2018-09-17] MEDS: TACROLIMUS 1 MG CAP PO (11:20)
[2018-09-17 11:26] LABS: ANION GAP 8 (5-13); BLOOD UREA NITROGEN 13 mg/dl (7-20); CALCIUM 8.6 mg/dl (8.4-10.2); CARBON DIOXIDE 21 mmol/L (21-31); CHLORIDE 97 mmol/L (97-110); CREATININE 0.79 mg/dl (0.44-1.00); GLUCOSE 222 mg/dl (70-220); SODIUM 126 mmol/L (135-144)
[2018-09-17 11:35] LABS: POTASSIUM 4.1 mmol/L (3.5-5.1)
[2018-09-17] MEDS ORDERED: hydrALAzine 20 MG INJ IV (13:30)
[2018-09-17 18:52] LABS: ADD UMIC YES; UR ASCORBIC ACID NEGATIVE (NEGATIVE); UR BILIRUBIN (Dip) NEGATIVE (NEGATIVE); UR BLOOD (Dip) NEGATIVE (NEGATIVE); UR CLARITY CLEAR (CLEAR); UR COLOR YELLOW (YELLOW); UR GLUCOSE (Dip) NEGATIVE (NEGATIVE); UR KETONES (Dip) NEGATIVE (NEGATIVE); UR LEUKOCYTE ESTERASE (Dip) NEGATIVE Leu/ul (NEGATIVE); UR NITRITE (Dip) NEGATIVE (NEGATIVE); UR RBC 0 /HPF (0-5); UR SPECIFIC GRAVITY (Dip) 1.012 (1.003-1.030); UR TOTAL PROTEIN (Dip) 2+ mg/dl (NEGATIVE); UR UROBILINOGEN (Dip) NEGATIVE (NEGATIVE); UR WBC 1 /HPF (0-5)
[2018-09-17 18:59] LABS: CREATININE,URINE RANDOM 91.22 mg/dl (20-320)
[2018-09-17 18:59] LABS: SODIUM,URINE RANDOM 38 mmol/L (30-90)
[2018-09-18] MEDS: INSULIN ASPART [NOVOLOG] 3 ML PEN SC ×5 (01:11→21:10)
[2018-09-18] MEDS: ACCU-CHEK XX (01:12)
[2018-09-18 06:28] LABS: ADD MAN DIFF? NO
[2018-09-18 06:32] LABS: BASOPHILS % 0.5 % (0.0-2.0); EOSINOPHILS # 0.1 10^3/ul (0.0-0.5); EOSINOPHILS % 1.6 % (0.0-7.0); HEMATOCRIT 29.2 % (37.0-47.0); LYMPHOCYTES % 15.4 % (15.0-51.0); MEAN CORPUSCULAR HEMOGLOBIN 29.2 pg (29.0-33.0); MEAN CORPUSCULAR HGB CONC 34.2 g/dl (32.0-37.0); MEAN CORPUSCULAR VOLUME 85.4 fl (82.0-101.0); MEAN PLATELET VOLUME 10.1 fl (7.4-10.4); MONOCYTE # 0.6 10^3/ul (0.3-0.9); MONOCYTES % 9.9 % (0.0-11.0); NEUTROPHIL # 4.5 10^3/ul (1.6-7.5); NEUTROPHILS % 71.6 % (39.0-77.0); PLATELET COUNT 222 10^3/UL (140-415); RED BLOOD COUNT 3.42 10^6/ul (4.20-5.40); RED CELL DISTRIBUTION WIDTH 12.7 % (11.5-14.5)
[2018-09-18 06:32] LABS: WHITE BLOOD COUNT 6.3 10^3/ul (4.8-10.8)
[2018-09-18] MEDS: LEVOTHYROXINE 125 MCG TAB PO (06:36)
[2018-09-18] MEDS: PANTOPRAZOLE (EC) 40 MG TAB PO (06:37)
[2018-09-18 06:53] LABS: ANION GAP 9 (5-13); BLOOD UREA NITROGEN 13 mg/dl (7-20); CALCIUM 8.5 mg/dl (8.4-10.2); CARBON DIOXIDE 21 mmol/L (21-31); CHLORIDE 94 mmol/L (97-110); CREATININE 0.75 mg/dl (0.44-1.00); GLUCOSE 261 mg/dl (70-220); POTASSIUM 4.1 mmol/L (3.5-5.1); SODIUM 124 mmol/L (135-144)
[2018-09-18] MEDS: INSULIN REGULAR, HUMAN 100 UNIT/1 ML 3ML VIAL SC ×3 (07:49→17:10)
[2018-09-18] MEDS: HEPARIN 5,000 UNIT/1 ML VIAL SC ×2 (07:51→21:10)
[2018-09-18] MEDS: LISINOPRIL 20 MG TAB PO (07:52)
[2018-09-18] MEDS: FERROUS SULFATE (EC) 325 MG TAB PO (07:52)
[2018-09-18] MEDS: AMLODIPINE 10 MG TAB PO (07:53)
[2018-09-18] MEDS: TACROLIMUS 1 MG CAP PO (07:53)
[2018-09-18] MEDS: MYCOPHENOLATE MOFETIL 500 MG TABLET PO ×2 (07:53→20:43)
[2018-09-18] MEDS: METOPROLOL (XL) 25 MG TAB PO (07:54)
[2018-09-18] MEDS: ASPIRIN (EC) 81 MG TAB PO (07:54)
[2018-09-18] MEDS: FUROSEMIDE 20 MG TAB PO (07:54)
[2018-09-18] MEDS: ISOSORBIDE MONONITRATE(SR)60 MG TAB PO (07:54)
[2018-09-18] MEDS: predniSONE 1 MG TAB PO (07:55)
[2018-09-18] MEDS: SOD CHLORIDE 0.9% 1,000 ML IV (08:02)
[2018-09-18 16:26] LABS: CREATININE, RANDOM URINE 93 mg/dL (20-275); MICROALBUMIN 126.2 mg/dL; MICROALBUMIN/CREATININE RATIO 1357 (<30)
[2018-09-18] MEDS ORDERED: INSULIN ASPART [NOVOLOG] 3 ML PEN SC (17:00)
[2018-09-18] MEDS: ATORVASTATIN 10 MG TAB PO (20:42)
[2018-09-18] MEDS: ONDANSETRON 4 MG INJ IV (20:58)
[2018-09-18] MEDS: INSULIN GLARGINE [LANTus] (100 UNITS/ML) SYG SC (21:10)
[2018-09-19] MEDS: ACCU-CHEK XX (02:00)
[2018-09-19] MEDS: ZOLPIDEM 5 MG TAB PO (02:17)
[2018-09-19 06:08] LABS: ADD MAN DIFF? NO
[2018-09-19 06:12] LABS: BASOPHILS % 0.5 % (0.0-2.0); EOSINOPHILS # 0.1 10^3/ul (0.0-0.5); EOSINOPHILS % 1.3 % (0.0-7.0); LYMPHOCYTES # 1.2 10^3/ul (0.8-2.9); MEAN CORPUSCULAR HEMOGLOBIN 28.8 pg (29.0-33.0); MEAN CORPUSCULAR HGB CONC 34.5 g/dl (32.0-37.0); MEAN CORPUSCULAR VOLUME 83.6 fl (82.0-101.0); MEAN PLATELET VOLUME 10.2 fl (7.4-10.4); MONOCYTE # 0.7 10^3/ul (0.3-0.9); MONOCYTES % 7.8 % (0.0-11.0); NEUTROPHIL # 6.3 10^3/ul (1.6-7.5); PLATELET COUNT 219 10^3/UL (140-415); RED BLOOD COUNT 3.47 10^6/ul (4.20-5.40); RED CELL DISTRIBUTION WIDTH 12.6 % (11.5-14.5)
[2018-09-19 06:12] LABS: WHITE BLOOD COUNT 8.4 10^3/ul (4.8-10.8)
[2018-09-19 06:32] LABS: ANION GAP 9 (5-13)
[2018-09-19 06:34] LABS: BLOOD UREA NITROGEN 11 mg/dl (7-20); CALCIUM 8.7 mg/dl (8.4-10.2); CARBON DIOXIDE 21 mmol/L (21-31); CHLORIDE 91 mmol/L (97-110); CREATININE 0.78 mg/dl (0.44-1.00); GLUCOSE 228 mg/dl (70-220); POTASSIUM 4.1 mmol/L (3.5-5.1); SODIUM 121 mmol/L (135-144)
[2018-09-19] MEDS: LEVOTHYROXINE 125 MCG TAB PO (06:54)
[2018-09-19] MEDS: PANTOPRAZOLE (EC) 40 MG TAB PO (06:54)
[2018-09-19] MEDS: FERROUS SULFATE (EC) 325 MG TAB PO (08:05)
[2018-09-19] MEDS: ISOSORBIDE MONONITRATE(SR)60 MG TAB PO (08:05)
[2018-09-19] MEDS: TACROLIMUS 1 MG CAP PO (08:05)
[2018-09-19] MEDS: predniSONE 1 MG TAB PO (08:05)
[2018-09-19] MEDS: MYCOPHENOLATE MOFETIL 500 MG TABLET PO ×2 (08:06→21:25)
[2018-09-19] MEDS: METOPROLOL (XL) 25 MG TAB PO (08:06)
[2018-09-19] MEDS: ASPIRIN (EC) 81 MG TAB PO (08:06)
[2018-09-19] MEDS: HYDROCODONE/APAP (5/325) TAB PO ×2 (08:06→21:30)
[2018-09-19] MEDS: AMLODIPINE 10 MG TAB PO (08:06)
[2018-09-19] MEDS: LISINOPRIL 20 MG TAB PO (08:07)
[2018-09-19] MEDS: FUROSEMIDE 20 MG TAB PO (08:07)
[2018-09-19 08:21] LABS: URIC ACID 5.3 mg/dl (3.1-7.9)
[2018-09-19] MEDS: INSULIN REGULAR, HUMAN 100 UNIT/1 ML 3ML VIAL SC (09:11)
[2018-09-19] MEDS: INSULIN ASPART [NOVOLOG] 3 ML PEN SC ×6 (09:11→21:44)
[2018-09-19] MEDS: HEPARIN 5,000 UNIT/1 ML VIAL SC ×2 (09:11→21:44)
[2018-09-19 11:20] LABS: SODIUM,URINE RANDOM 54 mmol/L (30-90)
[2018-09-19 12:39] LABS: OSMOLALITY,URINE 210 mOsm/kg (250-1200)
[2018-09-19 12:53] LABS: ANION GAP 9 (5-13); BLOOD UREA NITROGEN 11 mg/dl (7-20); CARBON DIOXIDE 22 mmol/L (21-31); CHLORIDE 91 mmol/L (97-110); CREATININE 0.84 mg/dl (0.44-1.00); GLUCOSE 178 mg/dl (70-220); POTASSIUM 4.6 mmol/L (3.5-5.1); SODIUM 122 mmol/L (135-144)
[2018-09-19 16:39] LABS: ADD UMIC YES; UR ASCORBIC ACID NEGATIVE (NEGATIVE); UR BILIRUBIN (Dip) NEGATIVE (NEGATIVE); UR BLOOD (Dip) NEGATIVE (NEGATIVE); UR CLARITY CLEAR (CLEAR); UR COLOR YELLOW (YELLOW); UR GLUCOSE (Dip) 2+ mg/dL (NEGATIVE); UR KETONES (Dip) NEGATIVE (NEGATIVE); UR LEUKOCYTE ESTERASE (Dip) NEGATIVE Leu/ul (NEGATIVE); UR NITRITE (Dip) NEGATIVE (NEGATIVE); UR RBC 0 /HPF (0-5); UR SPECIFIC GRAVITY (Dip) 1.006 (1.003-1.030); UR TOTAL PROTEIN (Dip) 1+ mg/dl (NEGATIVE); UR UROBILINOGEN (Dip) NEGATIVE (NEGATIVE); UR WBC 0 /HPF (0-5)
[2018-09-19 16:50] LABS: OSMOLALITY,URINE 206 mOsm/kg (250-1200)
[2018-09-19] MEDS: ONDANSETRON 4 MG INJ IV (18:48)
[2018-09-19] MEDS: ATORVASTATIN 10 MG TAB PO (21:25)
[2018-09-19] MEDS: INSULIN GLARGINE [LANTus] (100 UNITS/ML) SYG SC (21:44)
[2018-09-20] MEDS: ACCU-CHEK XX (02:00)
[2018-09-20 05:13] LABS: WHITE BLOOD COUNT 7.2 10^3/ul (4.8-10.8)
[2018-09-20 05:13] LABS: ADD MAN DIFF? NO; BASOPHILS % 0.4 % (0.0-2.0); EOSINOPHILS # 0.1 10^3/ul (0.0-0.5); EOSINOPHILS % 1.8 % (0.0-7.0); HEMATOCRIT 27.3 % (37.0-47.0); HEMOGLOBIN 9.6 g/dl (12.0-16.0); LYMPHOCYTES # 1.2 10^3/ul (0.8-2.9); LYMPHOCYTES % 16.7 % (15.0-51.0); MEAN CORPUSCULAR HEMOGLOBIN 29.9 pg (29.0-33.0); MEAN CORPUSCULAR HGB CONC 35.2 g/dl (32.0-37.0); MEAN PLATELET VOLUME 10.1 fl (7.4-10.4); MONOCYTE # 0.6 10^3/ul (0.3-0.9); MONOCYTES % 7.7 % (0.0-11.0); NEUTROPHIL # 5.1 10^3/ul (1.6-7.5); NEUTROPHILS % 71.4 % (39.0-77.0); PLATELET COUNT 228 10^3/UL (140-415); RED BLOOD COUNT 3.21 10^6/ul (4.20-5.40); RED CELL DISTRIBUTION WIDTH 12.4 % (11.5-14.5)
[2018-09-20 05:29] LABS: ANION GAP 7 (5-13); BLOOD UREA NITROGEN 14 mg/dl (7-20); CALCIUM 8.7 mg/dl (8.4-10.2); CARBON DIOXIDE 24 mmol/L (21-31); CHLORIDE 88 mmol/L (97-110); CREATININE 0.93 mg/dl (0.44-1.00); GLUCOSE 245 mg/dl (70-220); POTASSIUM 4.5 mmol/L (3.5-5.1)
[2018-09-20 05:34] LABS: SODIUM 119 mmol/L (135-144)
[2018-09-20] MEDS: PANTOPRAZOLE (EC) 40 MG TAB PO (06:29)
[2018-09-20] MEDS: LEVOTHYROXINE 125 MCG TAB PO (06:29)
[2018-09-20] MEDS: SODIUM CHLORIDE 1 GM TAB PO ×3 (07:06→20:44)
[2018-09-20] MEDS: predniSONE 1 MG TAB PO (08:29)
[2018-09-20] MEDS: ISOSORBIDE MONONITRATE(SR)60 MG TAB PO (08:29)
[2018-09-20] MEDS: METOPROLOL (XL) 25 MG TAB PO (08:30)
[2018-09-20] MEDS: ASPIRIN (EC) 81 MG TAB PO (08:30)
[2018-09-20] MEDS: FERROUS SULFATE (EC) 325 MG TAB PO (08:30)
[2018-09-20] MEDS: AMLODIPINE 10 MG TAB PO (08:30)
[2018-09-20] MEDS: TACROLIMUS 1 MG CAP PO (08:31)
[2018-09-20] MEDS: MYCOPHENOLATE MOFETIL 500 MG TABLET PO ×2 (08:31→20:44)
[2018-09-20] MEDS: LISINOPRIL 20 MG TAB PO (08:31)
[2018-09-20] MEDS: HEPARIN 5,000 UNIT/1 ML VIAL SC (08:34)
[2018-09-20] MEDS: INSULIN ASPART [NOVOLOG] 3 ML PEN SC ×7 (08:35→20:52)
[2018-09-20] MEDS ORDERED: SODIUM CHLORIDE 1 GM TAB PO (09:00)
[2018-09-20] MEDS: FUROSEMIDE 20 MG TAB PO (09:00)
[2018-09-20 09:19] LABS: SODIUM 119 mmol/L (135-144)
[2018-09-20] MEDS: SOD CHLORIDE 0.9% 1,000 ML IV ×2 (11:24→20:54)
[2018-09-20] MEDS ORDERED: DOCUSATE SODIUM 100 MG CAP PO (11:30)
[2018-09-20] MEDS ORDERED: BIOTENE SALIVA STIMULANT SPRAY MUCOUSMEM (11:30)
[2018-09-20 13:41] LABS: ANION GAP 7 (5-13); BLOOD UREA NITROGEN 14 mg/dl (7-20); CALCIUM 8.4 mg/dl (8.4-10.2); CARBON DIOXIDE 22 mmol/L (21-31); CHLORIDE 90 mmol/L (97-110); CREATININE 0.85 mg/dl (0.44-1.00); GLUCOSE 299 mg/dl (70-220); POTASSIUM 4.2 mmol/L (3.5-5.1)
[2018-09-20 13:49] LABS: SODIUM 120 mmol/L (135-144)
[2018-09-20 16:01] LABS: CREATININE, RANDOM URINE 24 mg/dL (20-275); MICROALBUMIN 30.1 mg/dL; MICROALBUMIN/CREATININE RATIO 1254 (<30)
[2018-09-20 19:12] LABS: ANION GAP 7 (5-13); BLOOD UREA NITROGEN 15 mg/dl (7-20); CALCIUM 8.5 mg/dl (8.4-10.2); CARBON DIOXIDE 21 mmol/L (21-31); CHLORIDE 92 mmol/L (97-110); CREATININE 1.05 mg/dl (0.44-1.00); GLUCOSE 222 mg/dl (70-220); POTASSIUM 4.3 mmol/L (3.5-5.1); SODIUM 120 mmol/L (135-144)
[2018-09-20] MEDS: ATORVASTATIN 10 MG TAB PO (20:44)
[2018-09-20] MEDS: INSULIN GLARGINE [LANTus] (100 UNITS/ML) SYG SC ×2 (20:53→23:30)
[2018-09-20] MEDS: NACL 3% 500 ML IV (23:00)
[2018-09-21] MEDS: ACETAMINOPHEN 325 MG TAB PO (01:09)
[2018-09-21] MEDS: ACCU-CHEK XX (02:00)
[2018-09-21] MEDS: INSULIN GLARGINE [LANTus] (100 UNITS/ML) SYG SC ×2 (03:10→20:56)
[2018-09-21 05:44] LABS: ADD MAN DIFF? NO
[2018-09-21 05:47] LABS: BASOPHILS % 0.3 % (0.0-2.0); EOSINOPHILS # 0.1 10^3/ul (0.0-0.5); EOSINOPHILS % 1.7 % (0.0-7.0); HEMATOCRIT 27.2 % (37.0-47.0); HEMOGLOBIN 9.5 g/dl (12.0-16.0); LYMPHOCYTES # 1.2 10^3/ul (0.8-2.9); MEAN CORPUSCULAR HGB CONC 34.9 g/dl (32.0-37.0); MEAN CORPUSCULAR VOLUME 85.8 fl (82.0-101.0); MEAN PLATELET VOLUME 9.9 fl (7.4-10.4); MONOCYTE # 0.6 10^3/ul (0.3-0.9); MONOCYTES % 8.8 % (0.0-11.0); NEUTROPHIL # 4.9 10^3/ul (1.6-7.5); NEUTROPHILS % 69.9 % (39.0-77.0); PLATELET COUNT 229 10^3/UL (140-415); RED BLOOD COUNT 3.17 10^6/ul (4.20-5.40); RED CELL DISTRIBUTION WIDTH 12.7 % (11.5-14.5)
[2018-09-21 06:11] LABS: ANION GAP 4 (5-13); BLOOD UREA NITROGEN 13 mg/dl (7-20); CALCIUM 8.6 mg/dl (8.4-10.2); CARBON DIOXIDE 23 mmol/L (21-31); CHLORIDE 97 mmol/L (97-110); CREATININE 0.86 mg/dl (0.44-1.00); GLUCOSE 187 mg/dl (70-220); POTASSIUM 4.3 mmol/L (3.5-5.1); SODIUM 124 mmol/L (135-144)
[2018-09-21] MEDS: LEVOTHYROXINE 125 MCG TAB PO (06:34)
[2018-09-21] MEDS: PANTOPRAZOLE (EC) 40 MG TAB PO (06:34)
[2018-09-21] MEDS: INSULIN ASPART [NOVOLOG] 3 ML PEN SC ×6 (07:54→20:45)
[2018-09-21] MEDS: TACROLIMUS 1 MG CAP PO (08:13)
[2018-09-21] MEDS: predniSONE 1 MG TAB PO (08:13)
[2018-09-21] MEDS: LISINOPRIL 20 MG TAB PO (08:13)
[2018-09-21] MEDS: ASPIRIN (EC) 81 MG TAB PO (08:14)
[2018-09-21] MEDS: MYCOPHENOLATE MOFETIL 500 MG TABLET PO ×2 (08:14→20:43)
[2018-09-21] MEDS: FUROSEMIDE 20 MG TAB PO (08:14)
[2018-09-21] MEDS: SODIUM CHLORIDE 1 GM TAB PO ×3 (08:14→20:44)
[2018-09-21] MEDS: ISOSORBIDE MONONITRATE(SR)60 MG TAB PO (08:14)
[2018-09-21] MEDS: FERROUS SULFATE (EC) 325 MG TAB PO (08:14)
[2018-09-21] MEDS: AMLODIPINE 10 MG TAB PO (08:15)
[2018-09-21] MEDS: METOPROLOL (XL) 25 MG TAB PO (08:15)
[2018-09-21] MEDS: ENOXAPARIN 40 MG/0.4 ML SYG SC (08:24)
[2018-09-21 10:27] LABS: SODIUM 127 mmol/L (135-144)
[2018-09-21] MEDS ORDERED: GLUCAGON 1 MG INJ IM (12:30)
[2018-09-21] MEDS ORDERED: GLUCOSE GEL 15 GRAM TUBE PO ×2 (12:30)
[2018-09-21] MEDS ORDERED: GLUCOSE GEL 15 GRAM TUBE BUCCAL (12:30)
[2018-09-21] MEDS ORDERED: DEXTROSE 50% 50 ML SYRINGE IV ×2 (12:30)
[2018-09-21] MEDS: ONDANSETRON 4 MG INJ IV (13:42)
[2018-09-21] MEDS: ATORVASTATIN 10 MG TAB PO (20:44)
[2018-09-21] MEDS: DOCUSATE SODIUM 100 MG CAP PO (20:59)
[2018-09-21] MEDS: ZOLPIDEM 5 MG TAB PO (22:38)
[2018-09-22] MEDS: ACCU-CHEK XX (02:00)
[2018-09-22] MEDS: ACETAMINOPHEN 325 MG TAB PO ×2 (05:00→21:28)
[2018-09-22 06:21] LABS: ADD MAN DIFF? NO
[2018-09-22] MEDS: LEVOTHYROXINE 125 MCG TAB PO (06:24)
[2018-09-22] MEDS: PANTOPRAZOLE (EC) 40 MG TAB PO (06:24)
[2018-09-22 06:35] LABS: BASOPHILS % 0.6 % (0.0-2.0); EOSINOPHILS # 0.1 10^3/ul (0.0-0.5); HEMATOCRIT 27.6 % (37.0-47.0); HEMOGLOBIN 9.2 g/dl (12.0-16.0); LYMPHOCYTES # 1.2 10^3/ul (0.8-2.9); LYMPHOCYTES % 17.4 % (15.0-51.0); MEAN CORPUSCULAR HEMOGLOBIN 29.3 pg (29.0-33.0); MEAN CORPUSCULAR HGB CONC 33.3 g/dl (32.0-37.0); MEAN CORPUSCULAR VOLUME 87.9 fl (82.0-101.0); MEAN PLATELET VOLUME 10.2 fl (7.4-10.4); MONOCYTE # 0.7 10^3/ul (0.3-0.9); MONOCYTES % 10.1 % (0.0-11.0); NEUTROPHIL # 4.5 10^3/ul (1.6-7.5); NEUTROPHILS % 67.8 % (39.0-77.0); PLATELET COUNT 230 10^3/UL (140-415); RED BLOOD COUNT 3.14 10^6/ul (4.20-5.40); RED CELL DISTRIBUTION WIDTH 13.2 % (11.5-14.5)
[2018-09-22 06:35] LABS: WHITE BLOOD COUNT 6.6 10^3/ul (4.8-10.8)
[2018-09-22 07:17] LABS: ANION GAP 7 (5-13); BLOOD UREA NITROGEN 12 mg/dl (7-20); CARBON DIOXIDE 23 mmol/L (21-31); CHLORIDE 99 mmol/L (97-110); CREATININE 0.88 mg/dl (0.44-1.00); GLUCOSE 113 mg/dl (70-220); POTASSIUM 4.1 mmol/L (3.5-5.1); SODIUM 129 mmol/L (135-144)
[2018-09-22] MEDS: INSULIN ASPART [NOVOLOG] 3 ML PEN SC ×7 (08:00→21:00)
[2018-09-22] MEDS: MYCOPHENOLATE MOFETIL 500 MG TABLET PO ×2 (08:17→21:27)
[2018-09-22] MEDS: TACROLIMUS 1 MG CAP PO (08:17)
[2018-09-22] MEDS: FERROUS SULFATE (EC) 325 MG TAB PO (08:17)
[2018-09-22] MEDS: SODIUM CHLORIDE 1 GM TAB PO ×3 (08:17→21:27)
[2018-09-22] MEDS: ASPIRIN (EC) 81 MG TAB PO (08:18)
[2018-09-22] MEDS: FUROSEMIDE 20 MG TAB PO (08:18)
[2018-09-22] MEDS: predniSONE 1 MG TAB PO (08:18)
[2018-09-22] MEDS: METOPROLOL (XL) 25 MG TAB PO (08:19)
[2018-09-22] MEDS: AMLODIPINE 10 MG TAB PO (08:19)
[2018-09-22] MEDS: LISINOPRIL 20 MG TAB PO (08:20)
[2018-09-22] MEDS: ISOSORBIDE MONONITRATE(SR)60 MG TAB PO (08:20)
[2018-09-22] MEDS: ENOXAPARIN 40 MG/0.4 ML SYG SC (08:36)
[2018-09-22] MEDS: ONDANSETRON (ODT) 4 MG TAB ODT (17:55)
[2018-09-22] MEDS: INSULIN GLARGINE [LANTus] (100 UNITS/ML) SYG SC ×2 (21:00→23:36)
[2018-09-22] MEDS: ATORVASTATIN 10 MG TAB PO (21:27)
[2018-09-22] MEDS: ZOLPIDEM 5 MG TAB PO (22:34)
[2018-09-23] MEDS: ACCU-CHEK XX (02:00)
[2018-09-23] MEDS: HYDROCODONE/APAP (5/325) TAB PO ×2 (05:44→21:29)
[2018-09-23 05:48] LABS: ADD MAN DIFF? NO
[2018-09-23 05:51] LABS: BASOPHILS % 0.6 % (0.0-2.0); EOSINOPHILS # 0.1 10^3/ul (0.0-0.5); EOSINOPHILS % 1.7 % (0.0-7.0); HEMATOCRIT 28.4 % (37.0-47.0); HEMOGLOBIN 9.5 g/dl (12.0-16.0); LYMPHOCYTES # 1.3 10^3/ul (0.8-2.9); LYMPHOCYTES % 18.8 % (15.0-51.0); MEAN CORPUSCULAR HGB CONC 33.5 g/dl (32.0-37.0); MEAN CORPUSCULAR VOLUME 89.6 fl (82.0-101.0); MEAN PLATELET VOLUME 9.3 fl (7.4-10.4); MONOCYTE # 0.6 10^3/ul (0.3-0.9); MONOCYTES % 8.2 % (0.0-11.0); NEUTROPHIL # 4.7 10^3/ul (1.6-7.5); NEUTROPHILS % 68.1 % (39.0-77.0); PLATELET COUNT 245 10^3/UL (140-415); RED BLOOD COUNT 3.17 10^6/ul (4.20-5.40); RED CELL DISTRIBUTION WIDTH 13.2 % (11.5-14.5)
[2018-09-23 05:51] LABS: WHITE BLOOD COUNT 6.9 10^3/ul (4.8-10.8)
[2018-09-23 06:20] LABS: ALANINE AMINOTRANSFERASE 32 IU/L (13-69); ALBUMIN 3.3 g/dl (3.3-4.9); ALBUMIN/GLOBULIN RATIO 1.32; ALKALINE PHOSPHATASE 69 IU/L (42-121); ANION GAP 7 (5-13); ASPARTATE AMINO TRANSFERASE 26 IU/L (15-46); BILIRUBIN,INDIRECT 0.3 mg/dl (0-1.1); BILIRUBIN,TOTAL 0.3 mg/dl (0.2-1.3); BLOOD UREA NITROGEN 15 mg/dl (7-20); CALCIUM 9.3 mg/dl (8.4-10.2); CARBON DIOXIDE 25 mmol/L (21-31); CHLORIDE 101 mmol/L (97-110); GLUCOSE 81 mg/dl (70-220); SODIUM 133 mmol/L (135-144); TOTAL PROTEIN 5.8 g/dl (6.1-8.1)
[2018-09-23] MEDS: LEVOTHYROXINE 125 MCG TAB PO (06:20)
[2018-09-23] MEDS: PANTOPRAZOLE (EC) 40 MG TAB PO (06:20)
[2018-09-23 06:21] LABS: INR 0.83; PROTIME 11.5 Sec (11.9-14.9); PT RATIO 0.9
[2018-09-23 06:22] LABS: MAGNESIUM 1.7 mg/dl (1.7-2.5)
[2018-09-23 06:22] LABS: ANION GAP 6 (5-13); BLOOD UREA NITROGEN 15 mg/dl (7-20); CALCIUM 9.2 mg/dl (8.4-10.2); CARBON DIOXIDE 22 mmol/L (21-31); CHLORIDE 102 mmol/L (97-110); CREATININE 0.92 mg/dl (0.44-1.00); GLUCOSE 78 mg/dl (70-220); LIPASE 30 U/L (23-300); POTASSIUM 4.1 mmol/L (3.5-5.1); SODIUM 130 mmol/L (135-144)
[2018-09-23] MEDS: INSULIN ASPART [NOVOLOG] 3 ML PEN SC ×7 (07:32→20:47)
[2018-09-23] MEDS: FUROSEMIDE 20 MG TAB PO (08:21)
[2018-09-23] MEDS: LISINOPRIL 20 MG TAB PO (08:21)
[2018-09-23] MEDS: predniSONE 1 MG TAB PO (08:21)
[2018-09-23] MEDS: FERROUS SULFATE (EC) 325 MG TAB PO (08:21)
[2018-09-23] MEDS: ASPIRIN (EC) 81 MG TAB PO (08:22)
[2018-09-23] MEDS: ISOSORBIDE MONONITRATE(SR)60 MG TAB PO (08:22)
[2018-09-23] MEDS: METOPROLOL (XL) 25 MG TAB PO (08:22)
[2018-09-23] MEDS: SODIUM CHLORIDE 1 GM TAB PO ×3 (08:23→20:43)
[2018-09-23] MEDS: AMLODIPINE 10 MG TAB PO (08:23)
[2018-09-23] MEDS: MYCOPHENOLATE MOFETIL 500 MG TABLET PO ×2 (08:23→20:43)
[2018-09-23] MEDS: TACROLIMUS 1 MG CAP PO (08:23)
[2018-09-23] MEDS: ENOXAPARIN 40 MG/0.4 ML SYG SC (08:29)
[2018-09-23] MEDS: ONDANSETRON (ODT) 4 MG TAB ODT (08:54)
[2018-09-23] MEDS: MAGNESIUM HYDROXIDE 30ML CUP PO (12:22)
[2018-09-23] MEDS: ATORVASTATIN 10 MG TAB PO (20:43)
[2018-09-23] MEDS: INSULIN GLARGINE [LANTus] (100 UNITS/ML) SYG SC (20:47)
[2018-09-24] MEDS: ACCU-CHEK XX (02:00)
[2018-09-24 05:40] LABS: ADD MAN DIFF? NO
[2018-09-24 06:02] LABS: BASOPHILS % 0.3 % (0.0-2.0); EOSINOPHILS # 0.1 10^3/ul (0.0-0.5); HEMATOCRIT 29.1 % (37.0-47.0); HEMOGLOBIN 9.5 g/dl (12.0-16.0); LYMPHOCYTES # 1.2 10^3/ul (0.8-2.9); LYMPHOCYTES % 18.8 % (15.0-51.0); MEAN CORPUSCULAR HEMOGLOBIN 29.6 pg (29.0-33.0); MEAN CORPUSCULAR HGB CONC 32.6 g/dl (32.0-37.0); MEAN CORPUSCULAR VOLUME 90.7 fl (82.0-101.0); MEAN PLATELET VOLUME 9.5 fl (7.4-10.4); MONOCYTE # 0.6 10^3/ul (0.3-0.9); NEUTROPHIL # 4.5 10^3/ul (1.6-7.5); NEUTROPHILS % 68.4 % (39.0-77.0); PLATELET COUNT 250 10^3/UL (140-415); RED BLOOD COUNT 3.21 10^6/ul (4.20-5.40); RED CELL DISTRIBUTION WIDTH 13.6 % (11.5-14.5)
[2018-09-24 06:02] LABS: WHITE BLOOD COUNT 6.5 10^3/ul (4.8-10.8)
[2018-09-24] MEDS: PANTOPRAZOLE (EC) 40 MG TAB PO (06:15)
[2018-09-24] MEDS: LEVOTHYROXINE 125 MCG TAB PO (06:15)
[2018-09-24 06:22] LABS: ANION GAP 8 (5-13); BLOOD UREA NITROGEN 16 mg/dl (7-20); CALCIUM 9.3 mg/dl (8.4-10.2); CARBON DIOXIDE 25 mmol/L (21-31); CHLORIDE 101 mmol/L (97-110); CREATININE 1.02 mg/dl (0.44-1.00); GLUCOSE 109 mg/dl (70-220); SODIUM 134 mmol/L (135-144)
[2018-09-24] MEDS: INSULIN ASPART [NOVOLOG] 3 ML PEN SC ×4 (07:37→11:56)
[2018-09-24] MEDS: FUROSEMIDE 20 MG TAB PO (08:29)
[2018-09-24] MEDS: TACROLIMUS 1 MG CAP PO (08:29)
[2018-09-24] MEDS: LISINOPRIL 20 MG TAB PO (08:30)
[2018-09-24] MEDS: MYCOPHENOLATE MOFETIL 500 MG TABLET PO (08:30)
[2018-09-24] MEDS: ASPIRIN (EC) 81 MG TAB PO (08:30)
[2018-09-24] MEDS: SODIUM CHLORIDE 1 GM TAB PO ×2 (08:30→13:24)
[2018-09-24] MEDS: ISOSORBIDE MONONITRATE(SR)60 MG TAB PO (08:30)
[2018-09-24] MEDS: predniSONE 1 MG TAB PO (08:30)
[2018-09-24] MEDS: AMLODIPINE 10 MG TAB PO (08:31)
[2018-09-24] MEDS: METOPROLOL (XL) 25 MG TAB PO (08:31)
[2018-09-24] MEDS: ENOXAPARIN 40 MG/0.4 ML SYG SC (08:37)
[2018-09-24] MEDS: ONDANSETRON (ODT) 4 MG TAB ODT (13:28)
[2018-09-24] MEDS ORDERED: INSULIN GLARGINE [LANTus] (100 UNITS/ML) SYG SC (21:00)
[2018-09-28] MEDS ORDERED: FERROUS SULFATE (EC) 325 MG TAB PO (09:00)
== END 2018-09-24 16:15 | disposition home or self-care (01) | DRG 640 ==
LOC: MS1 09-20 02:53 → E/R 15:37 → 6WM 09-20 23:05 → TEL 18:26
DX: E87.1 Hypo-osmolality and hyponatremia (principal); N18.6 End stage renal disease; Z94.0 Kidney transplant status; I12.0 Hypertensive chronic kidney disease with stage 5 chronic kidney disease or end stage renal disease; I16.0 Hypertensive urgency; D63.1 Anemia in chronic kidney disease; E11.65 Type 2 diabetes mellitus with hyperglycemia; E03.9 Hypothyroidism, unspecified; E78.5 Hyperlipidemia, unspecified; E11.22 Type 2 diabetes mellitus with diabetic chronic kidney disease; E66.9 Obesity, unspecified; Z68.38 Body mass index [BMI] 38.0-38.9, adult; Z79.899 Other long term (current) drug therapy; Z79.52 Long term (current) use of systemic steroids; Z79.82 Long term (current) use of aspirin; Z79.4 Long term (current) use of insulin
CPT/HCPCS: 36415; 71045; 76775; 80048; 80053; 80061; 81001; 81003; 82043; 82533; 82962; 83036; 83690; 83735; 83935; 84100; 84155; 84295; 84300; 84439; 84443; 84484; 84560; 85025; 85610; 92526; 92610; 93005; 96361; 96374; 97161; 97167; 99285-25